=== PATIENT | female | born 1930 | race Caucasian/White ===

== ENCOUNTER 2017-01-24 01:18 | Emergency (ER) | payer MEDICARE ==
[~2017-01-24 01:18] MED LIST: ACETAMINOPHEN500 M4 PO; BETAGAN5 M1; CALCIUM500 MG; CARVEDILOL3.125 M1; CLARITIN10 MG; COLACE100 MG; COMINH; CRESTOR40 M1; GLUCOSAMINE & C1 CA3; HUMULIN N100 U/1 ML SC; KENALOG; LASIX20 MG; LATANOPROST2.5 ML; MONUROL3 GM; MULTIVITAMIN1 SGL; WEL75; ZOF4; [UNRECOGNIZED DRUG - OTHER]
[2017-01-24 03:08] LABS: CALCIUM 8.9 mg/dL (8.5-10.1); CARBON DIOXIDE 21.7 mmol/L (21-32); CHLORIDE SERUM 106 mmol/L (98-107); CREATININE SERUM 1.4 mg/dL (0.6-1.0); GLUCOSE SERUM 257 mg/dL (74-106); SODIUM SERUM 140 mmol/L (136-145)
[2017-01-24 03:12] LABS: ALKALINE PHOSPHATASE 110 U/L (46-116); BILIRUBIN TOTAL 0.41 mg/dL (0.20-1.00); TOTAL PROTEIN, SERUM 7.2 g/dL (6.4-8.2)
[2017-01-24 03:15] LABS: ALBUMIN 2.9 g/dL (3.4-5.0)
[2017-01-24 03:17] LABS: BASOPHIL % 1.3 % (0-2); PLATELET COUNT 200 x10^3mcL (130-400)
[2017-01-24 03:24] LABS: RED CELL DISTRIBUTION WIDTH 16.2 % (11.5-14.5)
[2017-01-24 03:48] LABS: LIPASE 1060 IU/L (73-393)
[2017-01-24 03:53] LABS: ALT/SGPT 18 U/L (14-59)
[2017-01-24 03:55] LABS: AST/SGOT 17 U/L (15-37)
[2017-01-24 04:20] LABS: AMPHETAMINE QUAL UR NONE DETECTED (NEG <=1000)
[2017-01-24 05:30] VITALS: BP 135/69
== END 2017-01-24 05:30 | disposition short-term general hospital (02) ==
LOC: ED 01:18
PROVIDERS: Emergency Medicine
DX: R07.89 Other chest pain (principal); E11.65 Type 2 diabetes mellitus with hyperglycemia; I10 Essential (primary) hypertension; Z95.0 Presence of cardiac pacemaker
CPT/HCPCS: 80307; 83880; J7613; Q0092

== ENCOUNTER 2017-09-18 17:11 | Emergency (ER) | payer MEDICARE ==
[~2017-09-18] VITALS: Ht 160 cm; Wt 108.9 kg
[2017-09-18 17:22] VITALS: Ht 160 cm; Wt 108.9 kg
[2017-09-18 18:47] LABS: CALCIUM 9.9 mg/dL (8.5-10.1); CARBON DIOXIDE 21.2 mmol/L (21-32); CHLORIDE SERUM 102 mmol/L (98-107); CREATININE SERUM 1.4 mg/dL (0.6-1.0); GLUCOSE SERUM 246 mg/dL (74-106); POTASSIUM SERUM 4.1 mmol/L (3.5-5.1); SODIUM SERUM 136 mmol/L (136-145)
[2017-09-18 18:51] LABS: ALKALINE PHOSPHATASE 125 U/L (46-116); AST/SGOT 24 U/L (15-37); BILIRUBIN TOTAL 0.93 mg/dL (0.20-1.00); LIPASE 197 IU/L (73-393); TOTAL PROTEIN, SERUM 8.1 g/dL (6.4-8.2)
[2017-09-18 19:03] LABS: ALT/SGPT 13 U/L (14-59)
[2017-09-18 19:06] LABS: BASOPHIL % 0.5 % (0-2); PLATELET COUNT 166 x10^3mcL (130-400)
[2017-09-18 19:07] LABS: RED CELL DISTRIBUTION WIDTH 16.3 % (11.5-14.5)
[2017-09-19 01:56] VITALS: BP 125/85
== END 2017-09-19 01:56 | disposition short-term general hospital (02) ==
LOC: ED 17:11
PROVIDERS: Emergency Medicine
DX: J45.901 Unspecified asthma with (acute) exacerbation (principal); J18.1 Lobar pneumonia, unspecified organism; I10 Essential (primary) hypertension; E11.9 Type 2 diabetes mellitus without complications; Z88.0 Allergy status to penicillin; Z88.1 Allergy status to other antibiotic agents; Z88.2 Allergy status to sulfonamides; Z88.8 Allergy status to other drugs, medicaments and biological substances
CPT/HCPCS: 36600; 83880; J1956; J2930; J3475; J7613; J7644; Q0092

== ENCOUNTER 2017-11-22 09:57 | Emergency (ER) | payer MEDICARE ==
[~2017-11-22] VITALS: Ht 157.5 cm; Wt 109.8 kg
[2017-11-22 10:04] VITALS: Ht 157.5 cm; Wt 109.8 kg
[2017-11-22 13:39] VITALS: BP 128/51
== END 2017-11-22 13:39 | disposition home or self-care (01) ==
LOC: ED 09:57
DX: S01.01XA Laceration without foreign body of scalp, initial encounter (principal); I11.0 Hypertensive heart disease with heart failure; I50.9 Heart failure, unspecified; E11.9 Type 2 diabetes mellitus without complications; M19.90 Unspecified osteoarthritis, unspecified site; Z95.0 Presence of cardiac pacemaker; Z88.0 Allergy status to penicillin; Z88.1 Allergy status to other antibiotic agents; Z88.5 Allergy status to narcotic agent; Z88.8 Allergy status to other drugs, medicaments and biological substances; W01.198A Fall on same level from slipping, tripping and stumbling with subsequent striking against other object, initial encounter; Y93.89 Activity, other specified; Y92.89 Other specified places as the place of occurrence of the external cause; Y99.8 Other external cause status
CPT/HCPCS: 90715; J2001; J3490